=== PATIENT | male | born 1975 | race Caucasian/White ===

== ENCOUNTER 2019-10-28 01:08 | Inpatient (IN) | payer MEDICAID ==
[~2019-10-28] VITALS: Ht 165.1 cm; Wt 72.6 kg
[~2019-10-28 01:08] MED LIST: FERR-15 PO; PANT40EC PO
[2019-10-28 01:13] VITALS: BP 113/47
[2019-10-28] MEDS ORDERED: NACL 0.9% 1,000 ML IV SCH (01:21)
--- NOTE | 2019-10-28 01:21 | NUR ---
PT AMBULATED TO BED 06 WITH STEADY GAIT. NEGATIVE FOR COVID SCREENING.
--- NOTE | 2019-10-28 01:21 | NUR ---
DR REAGAN AT BEDSIDE EVALUATING PT.
--- NOTE | 2019-10-28 01:22 | NUR ---
44M PT HAS C/O 10/10 RLQ PAIN. PT STATES UNABLE TO SLEEP DUE TO PAIN. PT STATES PAIN IS NON-RADIATING. HAS C/O CONSTIPATION X 3 DAYS AND N/V EARLIER TODAY. PT HAS HX OF HERNIA ON R SIDE FOR 5 YEARS, PER PT STATEMENT.. AFEBRILE. NEGATIVE COVID SCREEN. NKA RX: DENIES.
[2019-10-28] MEDS ORDERED: ONDANSETRON 4 MG/2 ML VIAL IVP ONE (01:25)
[2019-10-28] MEDS ORDERED: KETOROLAC 30 MG/ML VIAL IVP ONE (01:25)
[2019-10-28 01:48] LABS: ANION GAP 14.6 (8-16); CARBON DIOXIDE 30.6 mmol/L (21-32); CREATININE 1.5 mg/dL (0.6-1.3); POTASSIUM 4.2 mmol/L (3.5-5.1)
--- NOTE | 2019-10-28 01:49 | NUR ---
PT MEDICATED WITH TORADOL AND ZOFRAN FOR NAUSEA AND PAIN
--- NOTE | 2019-10-28 01:49 | NUR ---
PT TAKEN TO CT VIA BED.
[2019-10-28 01:54] LABS: ALBUMIN 4.8 g/dL (3.4-5.0); TOTAL BILIRUBIN 0.9 mg/dL (0.0-1.0)
[2019-10-28 02:02] LABS: PROTHROMBIN TIME 11.3 secs (10.8-13.4)
[2019-10-28 02:11] LABS: BASOPHILS # (AUTO) 0.1 K/uL (0.00-0.22); BASOPHILS % (AUTO) 0.3 % (0.0-2.0); HEMATOCRIT 55.3 % (36-52); HEMOGLOBIN 18.7 g/dL (12.0-18.0); LYMPHOCYTES # (AUTO) 2.1 K/uL (2.0-11.5); LYMPHOCYTES % (AUTO) 10.7 % (20.5-51.1); MEAN CORPUSCULAR HEMOGLOBIN 30 pg (27-31); MEAN CORPUSCULAR HGB CONC 34 g/dL (33-37); MEAN CORPUSCULAR VOLUME 88.5 fL (80-94); MONOCYTES # (AUTO) 0.8 K/uL (0.8-1.0); MONOCYTES % (AUTO) 4.3 % (1.7-9.3); NEUTROPHILS # (AUTO) 16.4 K/uL (1.8-7.7); NEUTROPHILS % (AUTO) 84.7 % (42.2-75.2); PLATELET COUNT (AUTO) 319 K/uL (140-450); RED BLOOD CELL COUNT(AUTO) 6.25 MIL/uL (4.20-6.10); RED CELL DISTRIBUTION WIDTH 13.4 % (11.6-13.7)
--- NOTE | 2019-10-28 02:20 | NUR ---
RECIVED CALL FROM [facility]AG[facility]ATE - [employer]. PT HAS CIRTICAL LAB VALUE - LACTIC 2.5. DR. REAGAN MADE AWARE.
[2019-10-28 02:21] LABS: WHITE BLOOD COUNT (AUTO) 19.4 K/uL (4.8-10.8)
[2019-10-28] MEDS ORDERED: NACL 0.9% 2,000 ML IV ONE (02:25)
[2019-10-28] MEDS ORDERED: cefTRIAXone 1,000 MG VIAL ONE (02:32)
--- NOTE | 2019-10-28 02:48 | NUR ---
PT REPORTS DECREASED PAIN FROM 10/10 TO 5/10 AND TOLERABLE. VSS. NO FURTHER NEEDS AT THIS TIME. BED LOWEST AND LOCKED, RAILS UP X1 PT SON CONTACTED ABOUT PT'S STATUS PER THE PT'S REQUEST.
[2019-10-28] MEDS ORDERED: KETOROLAC 15 MG/ML VIAL IVP PRN (02:50)
[2019-10-28] MEDS ORDERED: DOCUSATE SODIUM 100 MG GELCAP PO PRN (02:50)
[2019-10-28] MEDS ORDERED: LORazepam 2 MG/ML VIAL IM/IVP PRN (02:50)
[2019-10-28] MEDS ORDERED: ONDANSETRON 4 MG/2 ML VIAL IM/IVP PRN (02:50)
[2019-10-28] MEDS ORDERED: MORPHINE SULFATE 2 MG/ML SYR IVP PRN (02:50)
[2019-10-28] MEDS ORDERED: ACETAMINOPHEN 325 MG TAB PO PRN (02:50)
--- NOTE | 2019-10-28 02:50 | NUR ---
PT STATES HE IS NOT ON ANY HOME MEDS
--- NOTE | 2019-10-28 03:05 | NUR ---
Patient will be admitted to care of DR. DOYLE. Admited to TELE. Will go to room 105A. Belongings list completed. Report to RACHEL MERRILL.
--- NOTE | 2019-10-28 03:05 | NUR ---
RECEIVED BEDSIDE REPORT FROM ED RN ORVILLE RICK, FOR PT'S CONTINUITY OF CARE. PT IS AAOX4, AMBULATORY, IS ON CHIEF OPTOMETRY SERVICE, ON ROOM AIR, HAS LEFT AC 20G INFUSING WITH NS BOLUS, INGUINAL HERNIA PROTRUDING, SEEN BY MD, STATES PAIN OF 5/10, SKIN IS INTACT. PT FAMILIAR WITH HOSPITAL SURROUNDINGS. EXPLAINED TO PT THE CELL EFFICIENCY SUPERVISOR ROUTINE, PT VERBALIZED UNDERSTANDING. SPOKE TO ON THE PHONE, INFORMED OF THE PT'S CURRENT CONDITION. PT'S NEEDS MET. SAFETY MEASURES IN PLACE AND CALL LIGHT IS WITHIN REACH. WILL MONITOR PT THROUGHOUT SHIFT.
[2019-10-28 03:28] LABS: PHOSPHORUS 4.1 mg/dL (2.5-4.9); THYROID STIMULATING HORMONE 2.94 uIU/mL (0.34-3.74)
[2019-10-28 03:30] VITALS: BP 155/100
--- NOTE | 2019-10-28 03:30 | NUR ---
VS CHECKED AND CHARTED. SECOND BAG OF 1L NS BOLUS ADMINISTERED. PT C/O PAIN 5/10, ADMINISTERED PRN IVP PAIN MEDICATION ORDERED. PT MADE COMFORTABLE. WILL CONTINUE TO MONITOR PT.
--- NOTE | 2019-10-28 04:45 | NUR ---
ADMINISTERED SCHEDULED IV ABX AND IVF ORDERED. PT USED THE RESTROOM, STATES PAIN MEDICATION EFFECTIVE. INFORMED PT OF URINE SPECIMEN COLLECTION. PT VERBALIZED UNDERSTANDING. WILL CONTINUE TO MONITOR PT.
[2019-10-28] MEDS: metroNIDAZOLE 500 MG/NS PREMIX 100 ML IV SCH ×3 (04:46→20:24)
[2019-10-28] MEDS: DEXT 5% /NACL 0.9% 1,000 ML IV SCH ×3 (04:50→23:05)
--- NOTE | 2019-10-28 04:50 | NUR ---
ADMINISTERED SCHEDULED IV ABX AND IVF ORDERED. PT TEACHING GIVEN, PT VERBALIZED UNDERSTANDING. LAB AT BEDSIDE FOR AM DRAW. WILL CONTINUE TO MONITOR PT.
--- NOTE | 2019-10-28 06:33 | NUR ---
PT C/O SEVERE INGUINAL AREA PAIN 02/12. ADMINISTERED IVP PAIN MEDICATION ORDERED. PT MADE COMFORTABLE. OFFERED WARMING PAD, PT REFUSED AT THIS TIME. PT DENIES ANY OTHER NEEDS AT THIS TIME. WILL ENDORSE TO AM SHIFT RN FOR PT'S CONTINUITY OF CARE.
--- NOTE | 2019-10-28 07:26 | NUR ---
SHIFT REPORT RECEIVED FROM FORGING PRESS LEVER TENDER NURSE. PT IS IN BED RESPONSIVE TO VERBAL STIMULI. NO DISTRESS NOTED. NO COMPLAINS OF PAIN. SAFETY MEASURES IN PLACE. CALL LIGHT IN REACH. WILL CONTINUE TO MONITOR.
[2019-10-28 08:00] VITALS: BP 177/101
[2019-10-28] MEDS ORDERED: hydrALAZINE 20 MG/ML VIAL IVP PRN (08:00)
--- NOTE | 2019-10-28 08:00 | NUR ---
PT IS COMPLAINING OF ABDOMINAL PAIN. NOTIFIED RESIDENT PHYSICIAN. PAIN MEDS WILL BE GIVEN. NOTED WITH SWELLING TO RIGHT INGUINAL AREA. PT SAYS IT IS PAINFUL. NOTED WITH HIGH BLOOD PRESSURE. PHYSICIAN AWARE. MEDS WILL BE GIVEN. SAFETY MEASURES IN PLACE. CALL LIGHT IN REACH.
[2019-10-28] MEDS ORDERED: MORPHINE SULFATE 2 MG/ML SYR IVP SCH (09:00)
--- NOTE | 2019-10-28 09:05 | NUR ---
PATIENT HAS BEEN SCREENED AND CATEGORIZED LOW NUTRITION RISK. PATIENT WILL BE SEEN WITHIN 7 DAYS OF ADMISSION. 11/03/[address]
[2019-10-28] MEDS ORDERED: LISI-420 PO (10:43)
[2019-10-28] MEDS ORDERED: ORE25 PO (10:43)
[2019-10-28] MEDS ORDERED: OMEP20EC11 PO (10:43)
[2019-10-28] MEDS ORDERED: LABETALOL 100 MG/20 ML VIAL IV SCH (11:00)
--- NOTE | 2019-10-28 11:17 | NUR ---
NOTIFIED DR PINEDA ABOUT PATIENTS PAIN SCALE OF 8/10 AND HIGH BLOOD PRESSURE OF 188/108. DR PINEDA TO ORDER DILAUDID TO CONSIDER PAIN FOR HIGH BLOOD PRESSURE. LABETALOL NOT GIVEN AT THIS TIME. DR PINEDA AWARE. WILL CONTINUE TO MONITOR.
[2019-10-28] MEDS ORDERED: HYDROmorphone PFS 2 MG/ML SYR IVP SCH (11:30)
[2019-10-28 12:00] VITALS: BP 194/108
--- NOTE | 2019-10-28 13:03 | NUR ---
PT IS OFF OF UNIT GOING TO OR FOR PROCEDURE.
--- NOTE | 2019-10-28 13:11 | NUR ---
DISCHARGE PLANNING: THIS IS A 44 Y/O MALE PATIENT FROM HOME, WHO CAME IN DUE TO WORSENING ABDOMINAL PAIN X 3 DAYS. PAST MEDICAL HISTORY INCLUDE GI BLEED. INITIAL DIAGNOSIS OF OBSTRUCTIVE INGUINAL HERNIA. CURRENT LABS INCLUDE WBC 19.4, H/H 18.7/55.3, NA/K 135/4.2, BUN/CREA 19/1.5. MRSA AND BLOOD CS PENDING. SURGICAL CONSULT IN PLACE. FOR RIGHT INGUINAL HERNIA REPAIR TODAY, CONSENT SIGNED. DC PLAN BACK TO HOME ONCE STABLE.
[2019-10-28] MEDS ORDERED: DESFLURANE 240 ML BTL INH ONE (13:25)
[2019-10-28] MEDS ORDERED: NEOSTIGMINE 1:1000 10 MG/10 ML VIAL ONE (13:25)
[2019-10-28] MEDS ORDERED: fentaNYL 0.05 MG/ML VIAL ONE (13:25)
[2019-10-28] MEDS ORDERED: DEXAMETHASONE 4 MG/ML VIAL ONE (13:25)
[2019-10-28] MEDS ORDERED: ROCURONIUM 50 MG/5 ML VIAL IV ONE (13:25)
[2019-10-28] MEDS ORDERED: MIDAZOLAM 2 MG/2 ML VIAL ONE (13:25)
[2019-10-28] MEDS ORDERED: PROPOFOL 200 MG/20 ML VIAL IV ONE (13:25)
[2019-10-28] MEDS ORDERED: ONDANSETRON 4 MG/2 ML VIAL ONE (13:25)
[2019-10-28] MEDS ORDERED: GLYCOPYRROLATE 0.2 MG/ML VIAL ONE (13:25)
[2019-10-28] MEDS ORDERED: BUPIVACAINE-MPF/EPI 0.25% 30 ML VIAL INJ ONE (13:34)
[2019-10-28] MEDS ORDERED: LACTATED RINGERS 1,000 ML IV SCH (14:19)
[2019-10-28] MEDS ORDERED: MEPERIDINE 25 MG/ML SYR IVP PRN (14:20)
[2019-10-28] MEDS ORDERED: HYDROmorphone 1 MG/ML AMP IVP PRN (14:20)
[2019-10-28] MEDS ORDERED: ONDANSETRON 4 MG/2 ML VIAL IVP PRN (14:20)
[2019-10-28] MEDS ORDERED: LABETALOL 100 MG/20 ML VIAL ONE (15:29)
[2019-10-28] MEDS ORDERED: LABETALOL 100 MG/20 ML VIAL IV PRN (15:30)
[2019-10-28 16:00] VITALS: BP 141/88
--- NOTE | 2019-10-28 16:25 | NUR ---
PT CAME BACK FROM OR TO THE UNIT. PT IS AWAKE AND RESPONSIVE. PAIN 3/10 TOLERABLE. DRESSING ON RIGHT INGUINAL AREA. DRESSING CLEAN AND INTACT. NO BLEEDING NOTED. BLOOD PRESSURE TAKEN. VITALS WITHIN NORMAL LEVELS. PER OR NURSE REGINALD. ESTIMATED BLOOD LOSS WAS 30 ML. PT WAS UNDER GENERAL ANESTHESIA. WILL CONTINUE TO MONITOR. CALL LIGHT IN REACH.
--- NOTE | 2019-10-28 18:38 | NUR ---
PT HAD DINNER. TOLERATED WELL. PAIN SCALE 4/10. PAIN IS TOLERABLE. NO DISTRESS NOTED. DRESSING INTACT. NO BLEEDING NOTED. VITAL SIGNS IN NORMAL LEVELS. WILL CONTINUE TO MONITOR. CALL LIGHT IN REACH.
--- NOTE | 2019-10-28 19:20 | NUR ---
SHIFT REPORT GIVEN TO MUTUEL CASHIER NURSE. PT IS IN BED AWAKE RESPONSIVE AND IN STABLE CONDITION. SAFETY MEASURES IN PLACE. CALL LIGHT IN REACH.
--- NOTE | 2019-10-28 19:21 | NUR ---
RECEIVED BEDSIDE REPORT FROM DAY SHIFT NURSESUSANNA. PT AAOX4. NO SOB NOTED. NO C/O OF PAIN. IV SITE ON LAC, 20G, PATENT, INTACT, AND ASYMPTOMATIC. BOARD UPDATED, SKIN WARM AND DRY TO TOUCH. POC REVIEWED AND PT VERBALIZED UNDERSTANDING. SAFETY MEASURES IN PLACE. CALL LIGHT IN REACH. WILL CONTINUE TO MONITOR.
[2019-10-28 20:00] VITALS: BP 137/79
--- NOTE | 2019-10-28 20:24 | NUR ---
GIVEN FLAGYL, PT C/O 09/12 INCISION PAIN, GIVEN TYLENOL MD ORDERED. PT TOLERATED WELL.
--- NOTE | 2019-10-28 22:22 | NUR ---
PT SLEEPING IN BED COMFORTABLY. NO ACUTE DISTRESS NOTED.
[2019-10-29] VITALS (7 sets, daily range): BP systolic 128–159; BP diastolic 64–88
--- NOTE | 2019-10-29 | NUR ---
VS CHECKED, WITHIN PT'S BASELINE. WILL CONTINUE TO MONITOR.
--- NOTE | 2019-10-29 02:00 | NUR ---
GIVEN ROCEPHIN MD ORDERED. PT TOLERATED WELL.
[2019-10-29] MEDS: metroNIDAZOLE 500 MG/NS PREMIX 100 ML IV SCH ×3 (04:40→20:42)
[2019-10-29] MEDS: HYDROcodone/APAP 5/325 MG 1 TAB TAB PO PRN ×3 (04:40→23:38)
--- NOTE | 2019-10-29 04:41 | NUR ---
GIVEN FLAGYL. PT C/O 12/13 PAIN, GIVEN NORCO MD ORDERED. PT TOLERATED WELL.
--- NOTE | 2019-10-29 06:02 | NUR ---
PT SLEEPING IN BED COMFORTABLY. NO ACUTE DISTRESS NOTED.
[2019-10-29 06:04] LABS: ANION GAP 12.1 (8-16); POTASSIUM 4.1 mmol/L (3.5-5.1)
[2019-10-29 06:35] LABS: CHOL/HDL RATIO 3.8 (1-4.5)
[2019-10-29 06:39] LABS: BASOPHILS % (AUTO) 0.2 % (0.0-2.0); EOSINOPHILS % (AUTO) 0.2 % (0.0-4.0); HEMATOCRIT 41.7 % (36-52); HEMOGLOBIN 13.8 g/dL (12.0-18.0); LYMPHOCYTES # (AUTO) 1.8 K/uL (2.0-11.5); MEAN CORPUSCULAR HEMOGLOBIN 30 pg (27-31); MEAN CORPUSCULAR HGB CONC 33 g/dL (33-37); MEAN CORPUSCULAR VOLUME 89.4 fL (80-94); MONOCYTES # (AUTO) 1.5 K/uL (0.8-1.0); MONOCYTES % (AUTO) 10.5 % (1.7-9.3); NEUTROPHILS # (AUTO) 11.3 K/uL (1.8-7.7); NEUTROPHILS % (AUTO) 77.1 % (42.2-75.2); PLATELET COUNT (AUTO) 219 K/uL (140-450); RED BLOOD CELL COUNT(AUTO) 4.66 MIL/uL (4.20-6.10); RED CELL DISTRIBUTION WIDTH 13.2 % (11.6-13.7); WHITE BLOOD COUNT (AUTO) 14.6 K/uL (4.8-10.8)
--- NOTE | 2019-10-29 06:56 | NUR ---
PT IN STABLE CONDITION. WILL ENDORSE TO DAY SHIFT NURSE FOR CONTINUOUS CARE.
--- NOTE | 2019-10-29 09:30 | NUR ---
RECEIVED BEDSIDE REPORT FROM DAYSHIFT CHARGE NURSE. PT RESTING IN BED. ABLE TO MAKE NEEDS KNOWN. RESPIRATIONS EVEN AND UNLABORED WITH NO SOB OR RESPIRATORY DISTRESS. SKIN WARM AND DRY TO TOUCH. IV SITE IN LEFT HAND 24G IS CLEAN, DRY, AND INTACT. SAFETY MEASURES IN PLACE. WILL CONTINUE TO MONITOR
--- NOTE | 2019-10-29 11:04 | NUR ---
PT CALLED AND ASKED FOR SOME WATER. WATER PITCHER FILLED AND GIVEN TO PATIENT. SAFETY MEASURES IN PLACE. WILL CONTINUE TO MONITOR
--- NOTE | 2019-10-29 13:15 | NUR ---
ADMINISTERED SCHED MED PRESCRIBED PER MD ORDER. PT TOLERATED WELL. MEDICATION EDUCATION PERFORMED. PT VERBALIZED UNDERSTANDING. SAFETY MEASURES IN PLACE. WILL CONTINUE TO MONITOR
--- NOTE | 2019-10-29 14:45 | NUR ---
HOURLY ROUNDING. PT RESTING IN BED. ABLE TO MAKE NEEDS KNOWN. RESPIRATIONS EVEN AND UNLABORED WITH NO SOB OR RESPIRATORY DISTRESS. SKIN WARM AND DRY TO TOUCH. SAFETY MEASURES IN PLACE. WILL CONTINUE TO MONITOR
--- NOTE | 2019-10-29 16:20 | NUR ---
ADMINISTERED SCHED IVF PRESCRIBED PER MD ORDER. PT TOLERATED WELL. MEDICATION EDUCATION PERFORMED. PT VERBALIZED UNDERSTANDING. SAFETY MEASURES IN PLACE. WILL CONTINUE TO MONITOR
[2019-10-29] MEDS: DEXT 5% /NACL 0.9% 1,000 ML IV SCH (16:30)
--- NOTE | 2019-10-29 16:30 | NUR ---
ENDORSED TO DAYSHIFT CHARGE NURSE NURA. PT RESTING IN BED. ABLE TO MAKE NEEDS KNOWN. RESPIRATIONS EVEN AND UNLABORED WITH NO SOB OR RESPIRATORY DISTRESS. SKIN WARM AND DRY TO TOUCH. SAFETY MEASURES IN PLACE. PT IS STABLE
--- NOTE | 2019-10-29 19:00 | NUR ---
PT RESTING. NO SOB NOTED. NO SIGNS OF PAIN AT THIS TIME. DRESSING TO RIGHT INGUINAL AREA DRY AND INTACT. ENDORSED TO NEXT SHIFT NURSE FOR CONTINUITY OF CARE.
--- NOTE | 2019-10-29 19:01 | NUR ---
RECD. RESTING IN BED, AWAKE, A/OX4. RESPIRATION EVEN AND UNLABORED. IV OF D5NS AT 80 ML/HR INFUSING, LEFT AC G20. INCISION IN THE RIGHT INGUINAL AREA COVERED WITH DRESSING, DRY AND INTACT. VOIDING WELL, TOLERATING CLEAR LIQUID DIET, AMBULATING TO BR. PLAN OF CARE FOR THE SHIFT DISCUSSED. VERBALIZED UNDERSTANDING. DENIES PAIN 0/10.
--- NOTE | 2019-10-29 21:00 | NUR ---
AMBULATED TO TO VOID. VOIDING WELL. BACK TO BED AFTER VOIDING.
--- NOTE | 2019-10-29 21:00 | NUR ---
Patient's Plan of Care was discussed and reviewed with REMARKETING MANAGER: DORI MOYA
--- NOTE | 2019-10-29 23:00 | NUR ---
ICE WATER AND POPSICLE GIVEN, TOLERATING CLEAR LIQUID DIET.
[2019-10-30] VITALS: BP 137/83
--- NOTE | 2019-10-30 01:00 | NUR ---
SLEEPING COMFORTABLY IN BED.
--- NOTE | 2019-10-30 03:00 | NUR ---
OUT SHERI BED, AMBULATED TO BR TO VOID, NO BM YET BUT PASSING GAS.
[2019-10-30 04:00] VITALS: BP 139/86
[2019-10-30] MEDS: HYDROcodone/APAP 5/325 MG 1 TAB TAB PO PRN (04:23)
[2019-10-30] MEDS: DEXT 5% /NACL 0.9% 1,000 ML IV SCH ×2 (04:27→04:50)
[2019-10-30] MEDS: metroNIDAZOLE 500 MG/NS PREMIX 100 ML IV SCH ×2 (04:40→13:30)
--- NOTE | 2019-10-30 06:58 | NUR ---
COMPLAINT OF PAIN PROMPTLY ATTENDED. CONDITION REMAIN STABLE. COMFORTABLE IN BED.
[2019-10-30 08:00] VITALS: BP 136/88
[2019-10-30 12:00] VITALS: BP 138/84
[2019-10-30] MEDS ORDERED: DOCU-299 PO (12:09)
[2019-10-30 13:46] LABS: BASOPHILS % (AUTO) 0.4 % (0.0-2.0); EOSINOPHILS # (AUTO) 0.1 K/uL (0-0.4); EOSINOPHILS % (AUTO) 0.7 % (0.0-4.0); HEMATOCRIT 40.1 % (36-52); HEMOGLOBIN 13.4 g/dL (12.0-18.0); LYMPHOCYTES # (AUTO) 1.6 K/uL (2.0-11.5); LYMPHOCYTES % (AUTO) 15.9 % (20.5-51.1); MEAN CORPUSCULAR HEMOGLOBIN 30 pg (27-31); MEAN CORPUSCULAR HGB CONC 33 g/dL (33-37); MONOCYTES # (AUTO) 0.9 K/uL (0.8-1.0); MONOCYTES % (AUTO) 9.1 % (1.7-9.3); NEUTROPHILS # (AUTO) 7.6 K/uL (1.8-7.7); NEUTROPHILS % (AUTO) 73.9 % (42.2-75.2); PLATELET COUNT (AUTO) 210 K/uL (140-450); RED BLOOD CELL COUNT(AUTO) 4.45 MIL/uL (4.20-6.10); RED CELL DISTRIBUTION WIDTH 13.4 % (11.6-13.7); WHITE BLOOD COUNT (AUTO) 10.3 K/uL (4.8-10.8)
[2019-10-30 14:38] LABS: ANION GAP 13.1 (8-16); CARBON DIOXIDE 28.9 mmol/L (21-32); CREATININE 0.8 mg/dL (0.6-1.3)
[2019-10-30 14:42] LABS: PHOSPHORUS 3.2 mg/dL (2.5-4.9)
--- NOTE | 2019-10-30 18:00 | NUR ---
DISCHARGE INSTRUCTIONS GIVEN TO PATIENT IN PREFERRED LANGUAGE OF MARSHALLESE. ANSWERED ALL OF PATIENT'S QUESTIONS REGARDING DISCHARGE. NEW/CHANGED MEDICATIONS DUE GIVEN, DIET REGIMEN, NO HEAVY LIFTING, AND PREVENT VALSALVA MANEUVER DURING BM TECHNIQUES. PATIENT VERBALIZED COMPLETE UNDERSTANDING. PATIENT TO GET DRESSED AND THEN AWAIT FOR FAMILY MEMBER TO ARRIVE TO TAKE PATIENT HOME. WILL CONTINUE TO MONITOR.
--- NOTE | 2019-10-30 18:55 | NUR ---
PATIENT FAMILY MEMBER WAITING AT FRONT CURB. ESCORTED PATIENT DOWN TO LOBBY VIA WHEELCHAIR. PATIENT DISCHARGED AT THIS TIME TO HOME IN PRIVATE VEHICLE IN STABLE CONDITION.
== END 2019-10-30 18:55 | disposition home or self-care (01) | DRG 710 ==
LOC: MED 01:08 → MTU 02:45
PROVIDERS: ADMIT General Practice; ATTEND General Practice
PROC: 0YQ50ZZ Repair Right Inguinal Region, Open Approach (ICD-10-PCS; 2019-10-28)
PROC: 0DQ80ZZ Repair Small Intestine, Open Approach (ICD-10-PCS; principal; 2019-10-28 14:50)
DX: A41.9 Sepsis, unspecified organism (principal); N17.0 Acute kidney failure with tubular necrosis; K40.40 Unilateral inguinal hernia, with gangrene, not specified as recurrent; D75.1 Secondary polycythemia; E87.1 Hypo-osmolality and hyponatremia; N28.1 Cyst of kidney, acquired; E86.0 Dehydration; R65.20 Severe sepsis without septic shock; R73.9 Hyperglycemia, unspecified; K57.90 Diverticulosis of intestine, part unspecified, without perforation or abscess without bleeding; Z56.0 Unemployment, unspecified
CPT/HCPCS: 36415; 71045; 74018; 80048; 80053; 83036; 83605; 83690; 83735; 83880; 84100; 84443; 85025; 85610; 85730; 86886; 86900; 86901; 87040; 87081; 93005; 96361; 96365; 96375; 99285; J0360; J0696; J1100; J1170; J1885; J2250; J2270; J2405; J2704; J2710; J3010; J3490; J7030; J7042; J7060; Q0092